=== PATIENT | female | born 1940 | race Caucasian/White ===

== ENCOUNTER 2016-11-05 07:53 | Day surgery (SDC) | payer MEDICARE, OTHER ==
[~2016-11-05 07:53] MED LIST: Lactated Ringers 1,000 ML IV SCH
[2016-11-05] MEDS ORDERED: Acetaminophen 1,000 MG in Premix Bag 1 BAG IV ONE (09:23)
[2016-11-05] MEDS ORDERED: Bupivacaine 0.25%/EPINEPHrine 1:200,000 30 ML SDV ONE (09:51)
[2016-11-05] MEDS ORDERED: Propofol 200 MG/20 ML SDV ONE ×2 (10:08→10:47)
[2016-11-05] MEDS ORDERED: fentaNYL 100 MCG/2 ML SDV ONE (10:08)
[2016-11-05] MEDS ORDERED: Bupivacaine 0.25%/EPINEPHrine 1:200,000 30 ML SDV INFILT ONE (10:37)
[2016-11-05] MEDS ORDERED: ceFAZolin 1 GM Vial ONE (10:44)
[2016-11-05] MEDS ORDERED: Ondansetron 4 MG/2 ML SDV IVPUSH PRN (11:47)
[2016-11-05 12:13] VITALS: BP 163/64
--- NOTE | 2016-11-05 18:14 | OR ---
PREOPERATIVE DIAGNOSIS: Large chronic sebaceous cyst, upper mid back. PREOPERATIVE DIAGNOSIS: Large chronic sebaceous cyst, upper mid back. PROCEDURE PROPOSED: Excision of the large chronic sebaceous cyst, upper midback 5 x 4 cm. PROCEDURE DONE: Excision of the large chronic sebaceous cyst, upper midback 5 x 4 cm. INDICATION: This is a 76-year-old female, who has been dealing with a chronic recurring sebaceous cyst in her upper mid back. She has had this lanced on a couple of occasions and this has spontaneously opened up on couple of occasions. She has been on numerous antibiotics, it never seems to fully heal, and it was therefore felt that it should be excised. TECHNIQUE: The patient was brought to the operative suite, placed in the left lateral decubitus position. She was sedated with propofol per [employer]. The upper midline back area where the lesion was, was sterilely prepped and draped. I then marked the skin to elliptically excise the involved region transversely. I then locally anesthetized the area with 0.25% Marcaine with epinephrine, using approximately 25 mL in total. I then made the skin incision superiorly and inferiorly and with cautery, I dissected out the sebaceous cyst. It did appear to tunnel superiorly, quite a distance; I was able to get up around the cyst wall and then went around posteriorly into normal subcutaneous tissue and removed the block of tissue and mass that measured 5 x 4 cm and submitted that for pathologic examination. Hemostasis was then obtained and assured with cautery and the area was then closed in layered fashion with 3-0 Vicryl ion the subcutaneous tissue followed by subcuticular stitch of 4-0 Vicryl in the skin level with the layered incision closure measuring 6 cm. A pressure dressing was applied. There was minimal blood loss. She was taken back to day surgery in good condition. SCM: 11/05/2016 11:06:47 MODL: 11/05/2016 12:27:52 /[id number]
== END 2016-11-05 13:13 | disposition home or self-care (01) ==
LOC: VM.SDS 07:53
PROVIDERS: ATTEND Surgery
DX: L72.3 Sebaceous cyst (principal); L08.89 Other specified local infections of the skin and subcutaneous tissue; J45.30 Mild persistent asthma, uncomplicated; I13.0 Hypertensive heart and chronic kidney disease with heart failure and stage 1 through stage 4 chronic kidney disease, or unspecified chronic kidney disease; N18.2 Chronic kidney disease, stage 2 (mild); I50.32 Chronic diastolic (congestive) heart failure; Z99.81 Dependence on supplemental oxygen; F41.9 Anxiety disorder, unspecified; Z79.82 Long term (current) use of aspirin; Z79.899 Other long term (current) drug therapy; E55.9 Vitamin D deficiency, unspecified; Z98.890 Other specified postprocedural states; Z98.51 Tubal ligation status
CPT/HCPCS: 00300; 11406; 12032; 88304; J0690; J2704; J3010; J7120; A9270-GY

== ENCOUNTER 2018-12-30 18:31 | Inpatient (IN) | payer MEDICARE, OTHER ==
[2018-12-30 19:22] LABS: CHLORIDE,CL 106 mmol/L (54-184); SODIUM,NA 148 mmol/L (69-191)
[2018-12-30 19:23] LABS: ANION GAP 18.9 mmol/L (10-20)
--- NOTE | 2018-12-30 19:36 | EDM.PDOC ---
ED HPI GENERAL MEDICAL PROBLEM - General Chief Complaint: General Stated Complaint: FALL AND WEAK Time Seen by Provider: 12/30/18 18:40 Source of Information: Reports: Patient History Limitations: Reports: Other (confused ) - History of Present Illness INITIAL COMMENTS - FREE TEXT/NARRATIVE: PT with fall from standing position yesterday states she does remember last night or this morning. Location: Reports: Generalized Left Leg Pain Score (Numeric/FACES): 6 - Related Data Allergies Allergy/AdvReac Type Severity Reaction Status Date / Time No Known Allergies Allergy Verified 12/30/18 19:48 Home Meds: Home Meds Albuterol Sulfate [Albuterol Sulfate HFA] 2 puff INH Q4HR PRN 02/01/14 [History] Aspirin [Halfprin] 1 tab PO DAILY 02/01/14 [History] Fluticasone Propionate [Flonase] 2 spray NASBOTH BID 02/01/14 [History] Fluticasone/Salmeterol [Advair 250-50] 1 dose INH BID 02/01/14 [History] Cholecalciferol (Vitamin D3) [Vitamin D3] 1,000 units PO DAILY tablet 08/11/14 [Rx] Furosemide [Lasix] 20 mg PO DAILY 11/04/16 [History] Ipratropium [Atrovent HFA] 2 puff PO QID 11/04/16 [History] Ibuprofen 400 mg PO DAILY 11/05/16 [History] Past Medical History HEENT History: Reports: Allergic Rhinitis, Cataract Cardiovascular History: Reports: Heart Failure, Hypertension, Pulmonary Hypertension Respiratory History: Reports: Asthma, Bronchitis, Recurrent, COPD, Other (See Below) Other Respiratory History: on oxygen. nocturnal hypoxemia Gastrointestinal History: Reports: None Genitourinary History: Reports: Chronic Renal Insuffiency, Other (See Below) Other Genitourinary History: CKD II Musculoskeletal History: Reports: None Neurological History: Reports: None Psychiatric History: Reports: Anxiety Endocrine/Metabolic History: Reports: Obesity/BMI 30+, Vitamin D Deficiency Hematologic History: Reports: Other (See Below) Other Hematologic History: HX MRSA Immunologic History: Reports: None Oncologic (Cancer) History: Reports: None Dermatologic History: Reports: Cellulitis, Other (See Below) Other Dermatologic History: upper back abscess - Past Surgical History Head Surgeries/Procedures: Reports: None HEENT Surgical History: Reports: Cataract Surgery, Tonsillectomy, Other (See Below) Other HEENT Surgeries/Procedures: eyelid lesion Cardiovascular Surgical History: Reports: None GI Surgical History: Reports: Hernia Repair/Other, Small Bowel Female Surgical History: Reports: Tubal Ligation Musculoskeletal Surgical History: Reports: None Oncologic Surgical History: Reports: None ED ROS GENERAL - Review of Systems Review Of Systems: See Below Constitutional: Reports: Weakness HEENT: Reports: No Symptoms Respiratory: Reports: No Symptoms Cardiovascular: Reports: No Symptoms Endocrine: Reports: No Symptoms GI/Abdominal: Reports: No Symptoms : Reports: No Symptoms Musculoskeletal: Reports: No Symptoms Skin: Reports: No Symptoms Neurological: Reports: No Symptoms Psychiatric: Reports: Confusion Hematologic/Lymphatic: Reports: No Symptoms Immunologic: Reports: No Symptoms ED EXAM, GENERAL - Physical Exam Exam: See Below Exam Limited By: Other (confused) General Appearance: Alert Eye Exam: Bilateral Eye: Normal Inspection Ears: Normal External Exam Nose: Normal Inspection Throat/Mouth: Normal Inspection Head: Atraumatic, Normocephalic Neck: Normal Inspection Respiratory/Chest: No Respiratory Distress, Lungs Clear, Normal Breath Sounds Cardiovascular: Normal Peripheral Pulses GI/Abdominal: Normal Bowel Sounds Back Exam: Normal Inspection Extremities: Normal Inspection Neurological: Alert Psychiatric: Normal Affect, Normal Mood Skin Exam: Warm, Dry, Intact Course - Vital Signs Last Recorded V/S: Last Vital Signs Temp 37.2 C 12/30/18 18:31 Pulse 87 12/30/18 18:31 Resp 20 12/30/18 18:31 BP 116/65 12/30/18 18:31 Pulse Ox 95 12/30/18 18:31 - Orders/Labs/Meds Orders: Active Orders 24 hr Category Date Time Status Supplemental O2 [Oxygen Therapy, ED] [RC] ASDIRECTED Care 12/30/18 20:08 Active Chest 1V Frontal [CR] Stat Exams 12/30/18 20:53 Ordered Pelvis 1V or 2V [CR] Stat Exams 12/30/18 20:34 Ordered CULTURE BLOOD [BC] Stat Lab 12/30/18 20:33 Ordered CULTURE BLOOD [BC] Stat Lab 12/30/18 20:33 Ordered CULTURE URINE [RM] Stat Lab 12/30/18 20:15 Received ESR [SEDIMENTATION RATE AUTO] [HEME] Stat Lab 12/30/18 19:03 Received Blood Culture x2 Reflex Set [OM.PC] Stat Oth 12/30/18 20:33 Ordered Labs: Laboratory Tests 12/30/18 12/30/18 12/30/18 Range/Units 19:03 19:03 19:03 WBC 23.3 H* (4.0-10.0) x10^3/uL RBC 5.49 (4.00-5.50) x10^6/uL Hgb 15.9 D (12.0-16.0) g/dL Hct 49.1 H (33.0-47.0) % MCV 89.4 (78.0-93.0) fL MCH 29.0 (26.0-32.0) pg MCHC 32.4 (32.0-36.0) g/dL RDW Coeff of Yanna 13.4 (10.0-15.0) % Plt Count 360 D (130-400) x10^3/uL Add Manual Diff Yes Neutrophils % (Manual) 88 H (50-80) % Band Neutrophils % 3 (0-6) % Lymphocytes % (Manual) 4 L (25-50) % Monocytes % (Manual) 5 (2-11) % Platelet Estimate Adequate Sodium 148 H (69-191) mmol/L Potassium 4.9 (1.5-9.9) mmol/L Chloride 106 (54-184) mmol/L Carbon Dioxide 28 (21-32) mmol/L Anion Gap 18.9 (10-20) mmol/L BUN 44 H (7-18) mg/dL Creatinine 2.7 H D (0.55-1.02) mg/dL Est Cr Clr Drug Dosing TNP Estimated GFR (MDRD) 17 Glucose 128 H (74-106) mg/dL Lactic Acid (0.4-2.0) mmol/L Calcium 9.9 (8.5-10.1) mg/dL Creatine Kinase (26-192) U/L C-Reactive Protein 7.3 H (<=0.9) mg/dL Urine Color (YELLOW) Urine Appearance (CLEAR) Urine pH (5.0-8.0) Ur Specific [place] Urine Protein (NEGATIVE) mg/dL Urine Glucose (UA) (NEGATIVE) mg/dL Urine Ketones (NEGATIVE) mg/dL Urine Occult Blood (NEGATIVE) Urine Nitrite (NEGATIVE) Urine Bilirubin (NEGATIVE) Urine Urobilinogen (0.2) EU/dL Ur Leukocyte Esterase (NEGATIVE) Urine RBC (NOT SEEN) /HPF Urine WBC (NOT SEEN) /HPF Ur Squamous Epith Cells (NEGATIVE) /HPF Amorphous Sediment Urine Bacteria (NEGATIVE) /HPF Hyaline Casts (NEGATIVE) /HPF Urine Mucus (NEGATIVE) /LPF 12/30/18 12/30/18 Range/Units 19:03 20:15 WBC (4.0-10.0) x10^3/uL RBC (4.00-5.50) x10^6/uL Hgb (12.0-16.0) g/dL Hct (33.0-47.0) % MCV (78.0-93.0) fL MCH (26.0-32.0) pg MCHC (32.0-36.0) g/dL RDW Coeff of Yanna (10.0-15.0) % Plt Count (130-400) x10^3/uL Add Manual Diff Neutrophils % (Manual) (50-80) % Band Neutrophils % (0-6) % Lymphocytes % (Manual) (25-50) % Monocytes % (Manual) (2-11) % Platelet Estimate Sodium (69-191) mmol/L Potassium (1.5-9.9) mmol/L Chloride (54-184) mmol/L Carbon Dioxide (21-32) mmol/L Anion Gap (10-20) mmol/L BUN (7-18) mg/dL Creatinine (0.55-1.02) mg/dL Est Cr Clr Drug Dosing Estimated GFR (MDRD) Glucose (74-106) mg/dL Lactic Acid 2.5 H* (0.4-2.0) mmol/L Calcium (8.5-10.1) mg/dL Creatine Kinase (26-192) U/L C-Reactive Protein (<=0.9) mg/dL Urine Color Dark yellow H (YELLOW) Urine Appearance Slightly cloudy H (CLEAR) Urine pH 5.0 (5.0-8.0) Ur Specific [place] 1.025 Urine Protein 30 H (NEGATIVE) mg/dL Urine Glucose (UA) Negative (NEGATIVE) mg/dL Urine Ketones 15 H (NEGATIVE) mg/dL Urine Occult Blood Moderate H (NEGATIVE) Urine Nitrite Positive H (NEGATIVE) Urine Bilirubin Large H (NEGATIVE) Urine Urobilinogen 1.0 (0.2) EU/dL Ur Leukocyte Esterase Negative (NEGATIVE) Urine RBC 0-5 (NOT SEEN) /HPF Urine WBC 0-5 (NOT SEEN) /HPF Ur Squamous Epith Cells Moderate H (NEGATIVE) /HPF Amorphous Sediment Moderate Urine Bacteria Moderate H (NEGATIVE) /HPF Hyaline Casts Moderate H (NEGATIVE) /HPF Urine Mucus Not seen (NEGATIVE) /LPF Departure - Departure Time of Disposition: 21:18 (Discussed with Dr. Gregory will admit acute ) Disposition: Admitted As Inpatient 68 Condition: Good Clinical Impression: UTI (urinary tract infection) - Discharge Information - My Orders Last 24 Hours: My Active Orders 12/30/18 19:03 ESR [SEDIMENTATION RATE AUTO] [HEME] Stat 12/30/18 20:08 Supplemental O2 [Oxygen Therapy, ED] [RC] ASDIRECTED 12/30/18 20:15 CULTURE URINE [RM] Stat 12/30/18 20:33 CULTURE BLOOD [BC] Stat CULTURE BLOOD [BC] Stat Blood Culture x2 Reflex Set [OM.PC] Stat 12/30/18 20:34 Pelvis 1V or 2V [CR] Stat 12/30/18 20:53 Chest 1V Frontal [CR] Stat - Assessment/Plan Last 24 Hours: My Active Orders 12/30/18 19:03 ESR [SEDIMENTATION RATE AUTO] [HEME] Stat 12/30/18 20:08 Supplemental O2 [Oxygen Therapy, ED] [RC] ASDIRECTED 12/30/18 20:15 CULTURE URINE [RM] Stat 12/30/18 20:33 CULTURE BLOOD [BC] Stat CULTURE BLOOD [BC] Stat Blood Culture x2 Reflex Set [OM.PC] Stat 12/30/18 20:34 Pelvis 1V or 2V [CR] Stat 12/30/18 20:53 Chest 1V Frontal [CR] Stat
--- NOTE | 2018-12-30 20:06 | CT ---
[id number] CT/CT Head WO IV EXAM: CT Head WO IV CLINICAL DATA: FALL, HIT HEAD YESTERDAY, CONFUSION COMPARISON STUDY: None FINDINGS: No intracranial hemorrhage, extra-axial fluid collection, mass, or acute ischemia. Moderate changes of chronic small vessel disease throughout the brain. Calvarium intact. Paranasal sinuses and mastoid air cells are clear. IMPRESSION: No acute intracranial findings. Matthew Germain MD 12/30/182004 Thank you for allowing us to participate in the care of your patient.
[2018-12-30] MEDS: Sodium Chloride 0.9% 1,000 ML IV SCH (21:15)
[2018-12-30] MEDS ORDERED: HYDROmorphone 1 MG/ML Syringe IVPUSH PRN (21:49)
[2018-12-30] MEDS: Heparin Sodium 5,000 Units/ML Vial SUBCUT SCH (22:21)
[2018-12-30] MEDS: cefTRIAXone 1 GM Vial IVPUSH SCH (22:21)
[2018-12-30] MEDS ORDERED: Albuterol HFA 18 Gm Inhaler INH PRN (22:58)
--- NOTE | 2018-12-31 04:23 | HP ---
CHIEF COMPLAINT: Fall with extreme weakness. HISTORY OF PRESENT ILLNESS: The patient is a 78-year-old female who lives home alone. She was brought in by ambulance. She had fallen yesterday at home. She cannot remember exactly what happened. She laid on the floor for about 4 hours and then was able to crawl and get a neighbor to help her get a walker. She does not remember hitting her head, but she just does not remember the fall. She does have a fair amount of anxiety disorder. She does not have Lifeline. She does have oxygen, which I am not certain if she had used last night or not. The patient otherwise has been in fairly stable health. She does have known asthma, CHF, chronic kidney disease stage 2 to 3, and chronic anxiety disorder. To note, the patient's son about a month ago of alcoholism. The patient otherwise offers no concerns. To note, the patient had not been on FORREST inhibitor or beta-abhi because of renal function. It is difficult to tell if she has taken any of her pills in the last 24 hours. MEDICATIONS: Her medications that she is currently on are carvedilol 3.125 mg 1 pill twice a day, Flonase 2 sprays twice a day, albuterol inhaler 2 puffs every 4 hours as needed, furosemide 20 mg 1 pill daily, Advair 250/50 one puff twice a day, aspirin 81 mg 1 pill a day, and vitamin D 1000 units 1 pill a day. ALLERGIES: None known. PAST MEDICAL HISTORY: She has a history of chronic diastolic heart failure. She had her last echocardiogram in 2017, which showed her ejection fraction at 60%. She has grade 1 diastolic dysfunction. No significant aortic regurgitation. No significant mitral regurgitation. Mild tricuspid regurgitation. Pulmonary artery pressure was elevated at 57, so moderate-to- severe pulmonary hypertension. The patient has hypertension, chronic anxiety disorder, COPD with asthma and nocturnal hypoxemia. She has had secondhand smoke exposure. Morbid obesity. She had MRSA in the past. She has had fibromyalgia. She had cellulitis of her upper back with some sebaceous cyst in 2017 via the MRSA that was on 08/11/2014. She has had a pulmonary nodule on the right. Vitamin D deficiency. PAST SURGICAL HISTORY: She has had cataract surgery. She has had intestinal resection in 2014 for small bowel obstruction. She has had tonsillectomy and tubal ligation. FAMILY MEDICAL HISTORY: Maternal grandmother has had diabetes. Mother has had cataracts. SOCIAL HISTORY: She is . She has had 2 children, 1 has since . She has never smoked. She does not consume alcohol. She lives in [place]. Homemaker. REVIEW OF SYSTEMS: She has had chronic left hip pain. She has not had any fever or chills. She does have some bruises on her knees and her elbows from her fall. She can get short of breath with activity. She does not walk around much. OBJECTIVE: Vital Signs: Show that her temperature is 37.2, pulse 87, blood pressure is 116/65, respiratory rate 20, and saturations are 95% on 2 L. Her weight was 104.3 kg. Skin: She normally has chronic oily greasy skin. She does have some skin abrasions on her elbows. She does have ecchymosis on her knees bilaterally about 4 cm in size with mild erythema on her kneecaps. Her back skin appears normal as well as her buttock. HEENT: Her mucous membranes are extremely dry. Conjunctivae are slightly injected. Heart: Regular rate and rhythm without murmurs or bruits. Lungs: Diminished breath sounds. Chest Wall: Nontender to palpation. Abdomen: Obese , soft, nontender. No hepatosplenomegaly. Pelvis: Itself is nontender, but she does have soreness if she rolls onto her left side. Neurologic: She is alert, oriented x3. Psych: She appears anxious and forgetful. LABORATORY DATA: Her lab work came back showing her white blood cell count elevated at 23.3, hemoglobin 15.9, platelets 360 with 88 segs and 3 bands. Sodium 148; potassium 4.9; creatinine 2.7, her normal creatinine runs around 1.3; BUN is 44; GFR 17; glucose 128. Lactic acid elevated at 2.5. CRP is 7.3. CK is elevated at 8580. Urinalysis with mini cath was dark yellow, slightly cloudy, specific gravity 1.025, protein 30, 15 ketones, moderate blood, positive nitrites, large bilirubin, moderate epi's, moderate bacteria, moderate hyaline casts, 0 to 5 red blood cells, 0 to 5 white blood cells. Chest x-ray was obtained, which shows no infiltrates or acute injuries. Hip x- ray showed old degenerative changes, but no acute fracture. She had a head CT done, which showed no acute injuries. IMPRESSION: 1. Acute weakness, multifactorial. 2. Acute kidney injury. 3. Rhabdomyolysis. 4. Elevated lactic acid. 5. Urinary tract infection. 6. Congestive heart failure. 7. Chronic anxiety disorder. 8. Chronic obstructive pulmonary disease. 9. Multiple skin abrasions. PLAN: The patient will be admitted to Acute Care. We will give IV hydration. She was given Rocephin for concern for bladder infection. Blood cultures were obtained that are pending. She has had a history of MRSA, so she will need to be in isolation. She will need a supplemental oxygen at bedtime. The patient's code level status was discussed with her, and she is do not resuscitate, do not intubate. We will offer Tylenol as well as Dilaudid for pain control. We will offer ice packs for her knee. We will get physical therapy and occupational therapy. We will place her on heparin for DVT prophylaxis because of her acute kidney injury. I do anticipate the patient to be able to return home; however, she may need a swing bed stay to help get her strong enough to be at home, as well she will need to get a [employer] set up for her. To note, Dr. Erika Suggs will follow up for me tomorrow in my absence as well as the weekend. GM12/30/2018 22:07:45 MODL: 12/31/2018 04:14:22 /[id number]
[2018-12-31] MEDS ORDERED: Fluticasone-Salmeterol 113-14 MCG Powder Inhalant INH SCH (07:00)
[2018-12-31] MEDS ORDERED: Carvedilol 3.125 MG Tab PO SCH (07:00)
[2018-12-31 07:32] LABS: ANION GAP 15.3 mmol/L (10-20)
--- NOTE | 2018-12-31 07:47 | CR ---
[id number] RAD/RAD Chest PA or AP 1V EXAM: SINGLE VIEW CHEST. INDICATION: HISTORY OF CARDIAC DISEASE COMPARISON: NO PREVIOUS SIMILAR EXAM IS AVAILABLE FINDINGS: There is mild discoid atelectasis in the lingula The cardiac silhouette is enlarged The aorta is tortuous The mediastinum is prominent IMPRESSION: NO PNEUMONIA OR EDEMA Francis Arroyo MD 12/31/18 0746 Thank you for allowing us to participate in the care of your patient.
--- NOTE | 2018-12-31 07:48 | CR ---
[id number] RAD/RAD Pelvis 1-2V Exam: RAD Pelvis 1-2V Clinical Data: BILATERAL HIP PAIN COMPARISON: NO PREVIOUS SIMILAR EXAM IS AVAILABLE FINDINGS: There are significant degenerative changes of both hips There are degenerative changes of the lumbar spine There is no fracture or dislocation IMPRESSION: DEGENERATIVE CHANGES OF BOTH HIPS Francis Arroyo MD 12/31/18 0747 Thank you for allowing us to participate in the care of your patient.
[2018-12-31] MEDS ORDERED: Fluticasone Propionate Nasal Spray 16 GM Bottle NASBOTH SCH (08:00)
[2018-12-31] MEDS ORDERED: SALMETEROL INH SCH (08:00)
[2018-12-31] MEDS ORDERED: FLUTICASONE INH SCH (08:00)
[2018-12-31] MEDS: Fluticasone-Salmeterol 113-14 MCG Powder Inhalant INH SCH ×2 (08:03→22:17)
[2018-12-31] MEDS: Aspirin 81 MG Tab.EC PO SCH (08:03)
[2018-12-31] MEDS: Carvedilol 3.125 MG Tab PO SCH ×2 (08:04→17:01)
[2018-12-31] MEDS ORDERED: Albuterol 0.083% 2.5 MG/3 ML Neb Soln NEB PRN (08:33)
--- NOTE | 2018-12-31 08:46 | PCM.PN ---
- General Info Date of Service: 12/31/18 Subjective Update: 78 yo female hospital day #2 admitted with YESICA secondary to rhabdomyolysis with possible sepsis contributing as well. Patient states she is doing better this morning. She is sore from working so hard to try to get up off the floor but does not have any focal pain. She also feels weak from the events of the past couple of days as well. She admits that she has not been eating and drinking as well as usual due to grief about her son 's 3 weeks ago. She denies any shortness of breath. She also denies any urinary symptoms and has not had any dysuria, frequency, or urgency. She has not had any fever. No recent cough or URI symptoms. No skin areas of concern by the patient nor on the nurse's full skin assessment at admit. She denies any abdominal pain, nausea, or vomiting. - Review of Systems General: Reports: No Symptoms HEENT: Reports: No Symptoms Pulmonary: Reports: No Symptoms Cardiovascular: Reports: No Symptoms Gastrointestinal: Reports: No Symptoms Genitourinary: Reports: No Symptoms Musculoskeletal: Reports: Arm Pain, Leg Pain Skin: Reports: No Symptoms Neurological: Reports: No Symptoms - Patient Data Vitals - Most Recent: Last Vital Signs Temp 37.4 C 12/31/18 05:07 Pulse 78 12/31/18 08:04 Resp 18 12/31/18 05:07 BP 133/78 12/31/18 08:04 Pulse Ox 95 12/31/18 07:25 Weight - Most Recent: 97.522 kg I&O - Last 24 Hours: Intake & Output 12/30/18 12/31/18 12/31/18 22:59 06:59 14:59 Intake Total 1440 Balance 1440 Lab Results Last 24 Hours: Laboratory Results - last 24 hr 12/30/18 12/30/18 12/30/18 Range/Units 19:03 19:03 19:03 WBC 23.3 H* (4.0-10.0) x10^3/uL RBC 5.49 (4.00-5.50) x10^6/uL Hgb 15.9 D (12.0-16.0) g/dL Hct 49.1 H (33.0-47.0) % MCV 89.4 (78.0-93.0) fL MCH 29.0 (26.0-32.0) pg MCHC 32.4 (32.0-36.0) g/dL RDW Coeff of Yanna 13.4 (10.0-15.0) % Plt Count 360 D (130-400) x10^3/uL Add Manual Diff Yes Neutrophils % (Manual) 88 H (50-80) % Band Neutrophils % 3 (0-6) % Lymphocytes % (Manual) 4 L (25-50) % Monocytes % (Manual) 5 (2-11) % Platelet Estimate Adequate ESR (0-21) mm/hr Sodium 148 H (69-191) mmol/L Potassium 4.9 (1.5-9.9) mmol/L Chloride 106 (54-184) mmol/L Carbon Dioxide 28 (21-32) mmol/L Anion Gap 18.9 (10-20) mmol/L BUN 44 H (7-18) mg/dL Creatinine 2.7 H D (0.55-1.02) mg/dL Est Cr Clr Drug Dosing TNP Estimated GFR (MDRD) 17 Glucose 128 H (74-106) mg/dL Lactic Acid (0.4-2.0) mmol/L Calcium 9.9 (8.5-10.1) mg/dL Corrected Calcium (8.5-10.1) mg/dL Magnesium (1.8-2.4) mg/dL Total Bilirubin (0.2-1.0) mg/dL AST (15-37) U/L ALT (14-59) U/L Alkaline Phosphatase (46-116) U/L Creatine Kinase 8500 H* (26-192) U/L C-Reactive Protein 7.3 H (<=0.9) mg/dL NT-Pro-B Natriuret Pep (<=450) pg/mL Total Protein (6.4-8.2) g/dL Albumin (3.4-5.0) g/dL Globulin Albumin/Globulin Ratio Urine Color (YELLOW) Urine Appearance (CLEAR) Urine pH (5.0-8.0) Ur Specific Nunda Urine Protein (NEGATIVE) mg/dL Urine Glucose (UA) (NEGATIVE) mg/dL Urine Ketones (NEGATIVE) mg/dL Urine Occult Blood (NEGATIVE) Urine Nitrite (NEGATIVE) Urine Bilirubin (NEGATIVE) Urine Urobilinogen (0.2) EU/dL Ur Leukocyte Esterase (NEGATIVE) Urine RBC (NOT SEEN) /HPF Urine WBC (NOT SEEN) /HPF Ur Squamous Epith Cells (NEGATIVE) /HPF Amorphous Sediment Urine Bacteria (NEGATIVE) /HPF Hyaline Casts (NEGATIVE) /HPF Urine Mucus (NEGATIVE) /LPF 12/30/18 12/30/18 12/30/18 Range/Units 19:03 19:03 20:15 WBC (4.0-10.0) x10^3/uL RBC (4.00-5.50) x10^6/uL Hgb (12.0-16.0) g/dL Hct (33.0-47.0) % MCV (78.0-93.0) fL MCH (26.0-32.0) pg MCHC (32.0-36.0) g/dL RDW Coeff of Yanna (10.0-15.0) % Plt Count (130-400) x10^3/uL Add Manual Diff Neutrophils % (Manual) (50-80) % Band Neutrophils % (0-6) % Lymphocytes % (Manual) (25-50) % Monocytes % (Manual) (2-11) % Platelet Estimate ESR 17 (0-21) mm/hr Sodium (69-191) mmol/L Potassium (1.5-9.9) mmol/L Chloride (54-184) mmol/L Carbon Dioxide (21-32) mmol/L Anion Gap (10-20) mmol/L BUN (7-18) mg/dL Creatinine (0.55-1.02) mg/dL Est Cr Clr Drug Dosing Estimated GFR (MDRD) Glucose (74-106) mg/dL Lactic Acid 2.5 H* (0.4-2.0) mmol/L Calcium (8.5-10.1) mg/dL Corrected Calcium (8.5-10.1) mg/dL Magnesium (1.8-2.4) mg/dL Total Bilirubin (0.2-1.0) mg/dL AST (15-37) U/L ALT (14-59) U/L Alkaline Phosphatase (46-116) U/L Creatine Kinase (26-192) U/L C-Reactive Protein (<=0.9) mg/dL NT-Pro-B Natriuret Pep (<=450) pg/mL Total Protein (6.4-8.2) g/dL Albumin (3.4-5.0) g/dL Globulin Albumin/Globulin Ratio Urine Color Dark yellow H (YELLOW) Urine Appearance Slightly cloudy H (CLEAR) Urine pH 5.0 (5.0-8.0) Ur Specific Nunda 1.025 Urine Protein 30 H (NEGATIVE) mg/dL Urine Glucose (UA) Negative (NEGATIVE) mg/dL Urine Ketones 15 H (NEGATIVE) mg/dL Urine Occult Blood Moderate H (NEGATIVE) Urine Nitrite Positive H (NEGATIVE) Urine Bilirubin Large H (NEGATIVE) Urine Urobilinogen 1.0 (0.2) EU/dL Ur Leukocyte Esterase Negative (NEGATIVE) Urine RBC 0-5 (NOT SEEN) /HPF Urine WBC 0-5 (NOT SEEN) /HPF Ur Squamous Epith Cells Moderate H (NEGATIVE) /HPF Amorphous Sediment Moderate Urine Bacteria Moderate H (NEGATIVE) /HPF Hyaline Casts Moderate H (NEGATIVE) /HPF Urine Mucus Not seen (NEGATIVE) /LPF 12/30/18 12/31/18 12/31/18 Range/Units 23:06 06:38 06:38 WBC 19.1 H (4.0-10.0) x10^3/uL RBC 4.65 (4.00-5.50) x10^6/uL Hgb 13.4 D (12.0-16.0) g/dL Hct 42.4 (33.0-47.0) % MCV 91.2 (78.0-93.0) fL MCH 28.8 (26.0-32.0) pg MCHC 31.6 L (32.0-36.0) g/dL RDW Coeff of Yanna 13.3 (10.0-15.0) % Plt Count 280 D (130-400) x10^3/uL Add Manual Diff Yes Neutrophils % (Manual) 93 H (50-80) % Band Neutrophils % (0-6) % Lymphocytes % (Manual) 2 L (25-50) % Monocytes % (Manual) 5 (2-11) % Platelet Estimate Adequate ESR (0-21) mm/hr Sodium 147 H (69-191) mmol/L Potassium 4.3 (1.5-9.9) mmol/L Chloride 108 H (54-184) mmol/L Carbon Dioxide 28 (21-32) mmol/L Anion Gap 15.3 (10-20) mmol/L BUN 47 H (7-18) mg/dL Creatinine 2.2 H (0.55-1.02) mg/dL Est Cr Clr Drug Dosing 17.21 Estimated GFR (MDRD) 22 Glucose 113 H (74-106) mg/dL Lactic Acid 1.4 (0.4-2.0) mmol/L Calcium 8.4 L D (8.5-10.1) mg/dL Corrected Calcium 9.28 (8.5-10.1) mg/dL Magnesium 2.3 (1.8-2.4) mg/dL Total Bilirubin 0.8 (0.2-1.0) mg/dL AST 209 H (15-37) U/L ALT 81 H (14-59) U/L Alkaline Phosphatase 63 (46-116) U/L Creatine Kinase 2711 H* (26-192) U/L C-Reactive Protein (<=0.9) mg/dL NT-Pro-B Natriuret Pep 1713 H (<=450) pg/mL Total Protein 6.5 (6.4-8.2) g/dL Albumin 2.9 L (3.4-5.0) g/dL Globulin 3.6 Albumin/Globulin Ratio 0.81 Urine Color (YELLOW) Urine Appearance (CLEAR) Urine pH (5.0-8.0) Ur Specific Nunda Urine Protein (NEGATIVE) mg/dL Urine Glucose (UA) (NEGATIVE) mg/dL Urine Ketones (NEGATIVE) mg/dL Urine Occult Blood (NEGATIVE) Urine Nitrite (NEGATIVE) Urine Bilirubin (NEGATIVE) Urine Urobilinogen (0.2) EU/dL Ur Leukocyte Esterase (NEGATIVE) Urine RBC (NOT SEEN) /HPF Urine WBC (NOT SEEN) /HPF Ur Squamous Epith Cells (NEGATIVE) /HPF Amorphous Sediment Urine Bacteria (NEGATIVE) /HPF Hyaline Casts (NEGATIVE) /HPF Urine Mucus (NEGATIVE) /LPF 12/31/18 Range/Units 06:38 WBC (4.0-10.0) x10^3/uL RBC (4.00-5.50) x10^6/uL Hgb (12.0-16.0) g/dL Hct (33.0-47.0) % MCV (78.0-93.0) fL MCH (26.0-32.0) pg MCHC (32.0-36.0) g/dL RDW Coeff of Yanna (10.0-15.0) % Plt Count (130-400) x10^3/uL Add Manual Diff Neutrophils % (Manual) (50-80) % Band Neutrophils % (0-6) % Lymphocytes % (Manual) (25-50) % Monocytes % (Manual) (2-11) % Platelet Estimate ESR (0-21) mm/hr Sodium (69-191) mmol/L Potassium (1.5-9.9) mmol/L Chloride (54-184) mmol/L Carbon Dioxide (21-32) mmol/L Anion Gap (10-20) mmol/L BUN (7-18) mg/dL Creatinine (0.55-1.02) mg/dL Est Cr Clr Drug Dosing Estimated GFR (MDRD) Glucose (74-106) mg/dL Lactic Acid 1.4 (0.4-2.0) mmol/L Calcium (8.5-10.1) mg/dL Corrected Calcium (8.5-10.1) mg/dL Magnesium (1.8-2.4) mg/dL Total Bilirubin (0.2-1.0) mg/dL AST (15-37) U/L ALT (14-59) U/L Alkaline Phosphatase (46-116) U/L Creatine Kinase (26-192) U/L C-Reactive Protein (<=0.9) mg/dL NT-Pro-B Natriuret Pep (<=450) pg/mL Total Protein (6.4-8.2) g/dL Albumin (3.4-5.0) g/dL Globulin Albumin/Globulin Ratio Urine Color (YELLOW) Urine Appearance (CLEAR) Urine pH (5.0-8.0) Ur Specific Nunda Urine Protein (NEGATIVE) mg/dL Urine Glucose (UA) (NEGATIVE) mg/dL Urine Ketones (NEGATIVE) mg/dL Urine Occult Blood (NEGATIVE) Urine Nitrite (NEGATIVE) Urine Bilirubin (NEGATIVE) Urine Urobilinogen (0.2) EU/dL Ur Leukocyte Esterase (NEGATIVE) Urine RBC (NOT SEEN) /HPF Urine WBC (NOT SEEN) /HPF Ur Squamous Epith Cells (NEGATIVE) /HPF Amorphous Sediment Urine Bacteria (NEGATIVE) /HPF Hyaline Casts (NEGATIVE) /HPF Urine Mucus (NEGATIVE) /LPF Alex Results Last 24 Hours: Microbiology 12/30/18 21:45 Anaerobic Blood Culture - Final Blood - Venous - Lab Draw 12/30/18 21:34 Anaerobic Blood Culture - Final Blood - Venous Med Orders - Current: Current Medications Acetaminophen (Tylenol) 650 mg PO Q4H PRN PRN Reason: Pain (Mild 1-3)/fever Albuterol (Ventolin Hfa) 0 gm INH Q4H PRN PRN Reason: Shortness of Breath Albuterol (Proventil Neb Soln) 2.5 mg NEB Q4HRRT PRN PRN Reason: Shortness of Breath Aspirin (Halfprin) 81 mg PO DAILY [facility] Last Admin: 12/31/18 08:03 Dose: 81 mg Carvedilol (Coreg) 3.125 mg PO BID@0800,1700 [facility] Last Admin: 12/31/18 08:04 Dose: 3.125 mg Ceftriaxone Sodium (Rocephin) 1 gm IVPUSH Q24H [facility] Last Admin: 12/30/18 22:21 Dose: 1 gm Heparin Sodium (Porcine) (Heparin Sodium) 5,000 units SUBCUT Q12H [facility] Last Admin: 12/30/18 22:21 Dose: 5,000 units Sodium Chloride (Normal Saline) 1,000 mls @ 100 mls/hr IV ASDIRECTED [facility] Last Admin: 12/30/18 21:15 Dose: 100 mls/hr Influenza Virus Vaccine (Fluzone High-Dose 2018- Syringe) 180 mcg IM .ONCE ONE Stop: 12/31/18 09:01 Fluticasone/Salmeterol (Fluticasone-Salmeterol 113-14 Mcg Powder Inh) 1 puff INH BID@0800,2000 [facility] Last Admin: 12/31/18 08:03 Dose: 1 puff Discontinued Medications Carvedilol (Coreg) 3.125 mg PO BIDAC [facility] Fluticasone Propionate (Flonase) 0 gm NASBOTH BID [facility] Last Admin: 12/31/18 08:05 Dose: Not Given Hydromorphone HCl (Dilaudid) 0.25 mg IVPUSH Q4H PRN PRN Reason: Pain Last Admin: 12/30/18 22:22 Dose: 0.25 mg Influenza Virus Vaccine (Pharmacy To Dose - Influenza Vaccine) 1 each IM ONETIME ONE Stop: 12/30/18 23:31 - Exam General: Alert, Oriented, Cooperative, No Acute Distress HEENT: Mucous Membr. Moist/[place] Neck: Supple, Trachea Midline, No Thyromegaly. No: Lymphadenopathy Lungs: Clear to Auscultation, Normal Respiratory Effort Cardiovascular: Regular Rate, Regular Rhythm, No Murmurs GI/Abdominal Exam: Normal Bowel Sounds, Soft, Non-Tender, No Organomegaly, No Distention, No Mass Extremities: Non-Tender, No Pedal Edema, Normal Capillary Refill Peripheral Pulses: 2+: Radial (L), Radial (R) Skin: Warm, Dry, Intact Neurological: No New Focal Deficit - Problem List & Annotations (1) YESICA (acute kidney injury) SNOMED Code(s): 68862846, 09813296 Code(s): N17.9 - ACUTE KIDNEY FAILURE, UNSPECIFIED Status: Acute Current Visit: Yes (2) CKD (chronic kidney disease) stage 2, GFR 60-89 ml/min SNOMED Code(s): 750183926 Code(s): N18.2 - CHRONIC KIDNEY DISEASE, STAGE 2 (MILD) Status: Chronic Priority: Medium Current Visit: Yes (3) Rhabdomyolysis SNOMED Code(s): 370079271 Code(s): M62.82 - RHABDOMYOLYSIS Status: Acute Current Visit: Yes Qualifiers: Rhabdomyolysis type: non-traumatic Qualified Code(s): M62.82 - Rhabdomyolysis (4) Leukocytosis SNOMED Code(s): 910766125, 351687650 Code(s): D72.829 - ELEVATED WHITE BLOOD CELL COUNT, UNSPECIFIED Status: Acute Current Visit: Yes Qualifiers: Leukocytosis type: unspecified Qualified Code(s): D72.829 - Elevated white blood cell count, unspecified (5) Generalized weakness SNOMED Code(s): 42736305 Code(s): R53.1 - WEAKNESS Status: Acute Current Visit: Yes (6) Anxiety SNOMED Code(s): 58164565 Code(s): F41.9 - ANXIETY DISORDER, UNSPECIFIED Status: Chronic Priority: Low Current Visit: Yes (7) CHF (congestive heart failure) SNOMED Code(s): 29101425 Code(s): I50.9 - HEART FAILURE, UNSPECIFIED Status: Chronic Priority: Medium Current Visit: Yes (8) COPD (chronic obstructive pulmonary disease) SNOMED Code(s): 21920039 Code(s): J44.9 - CHRONIC OBSTRUCTIVE PULMONARY DISEASE, UNSPECIFIED Status : Chronic Priority: Medium Current Visit: Yes Qualifiers: COPD type: unspecified COPD Qualified Code(s): J44.9 - Chronic obstructive pulmonary disease, unspecified (9) HTN (hypertension), benign SNOMED Code(s): 96458384 Code(s): I10 - ESSENTIAL (PRIMARY) HYPERTENSION Status: Chronic Priority : Low Current Visit: Yes - Problem List Review Problem List Initiated/Reviewed/Updated: Yes - Assessment Assessment:: 78 yo female hospital day #2 with YESICA secondary to rhabdomyolysis after a fall at home from which she could not get up. She is sore today but otherwise feeling fine. Her labs are looking better today. - Plan Plan:: #1 Acute Kidney Injury, secondary to #3 #2 CKD stage II with baseline creatinine of 1.3 #3 Rhabdomyolysis - [employer] down to 2.2 today from 2.7 yesterday. - CK also already trending down. - Patient is tolerating the fluid load without any issues. - Therefore, will continue normal saline @100 cc/hr. - Recheck labs in the am. #4 Leukocytosis - U/A showed nitrites but no pyuria; she also has had no symptoms of a UTI. - Given significant elevation in her WBC, will continue antibiotics (ceftriaxone ) until her urine culture is available. - It is also possible the leukocytosis is from the fall and associated rhabdomyolysis. Therefore, if her urine culture is negative, would stop antibiotics and observe. She has no other s/s of an alternative infectious source. #5 Generalized weakness, multifactorial - Patient will have PT and OT consults today. #6 Anxiety #7 Diastolic CHF #8 COPD #9 Hypertension - Continue home medications. - Patient may benefit from counseling related to her grief. Patient will remain admitted to acute today - anticipate she will be on acute for another 2 nights as we await her urine culture and continue to provide IV antibiotics and fluids until this is available and her labs are consistently trending towards improvement. Recheck labs in the am. Code status is DNR/DNI - discussed with her PCP on admission. She is on heparin for VTE prophylaxis.
[2018-12-31] MEDS: Heparin Sodium 5,000 Units/ML Vial SUBCUT SCH ×2 (09:44→22:19)
[2018-12-31] MEDS: Sodium Chloride 0.9% 1,000 ML IV SCH ×2 (11:09→18:07)
[2018-12-31] MEDS: cefTRIAXone 1 GM Vial IVPUSH SCH (22:15)
[2018-12-31] MEDS: Acetaminophen 325 MG Tab PO PRN (22:20)
[2019-01-01] MEDS: Sodium Chloride 0.9% 1,000 ML IV SCH (04:06)
[2019-01-01] MEDS: Acetaminophen 325 MG Tab PO PRN ×2 (04:07→16:13)
[2019-01-01] MEDS: Aspirin 81 MG Tab.EC PO SCH (08:00)
[2019-01-01] MEDS: Fluticasone-Salmeterol 113-14 MCG Powder Inhalant INH SCH ×2 (08:00→21:55)
[2019-01-01] MEDS: Carvedilol 3.125 MG Tab PO SCH ×2 (08:00→17:11)
[2019-01-01 08:21] LABS: ANION GAP 13.4 mmol/L (10-20)
--- NOTE | 2019-01-01 09:13 | PCM.PN ---
- General Info Date of Service: 01/01/19 Subjective Update: 78 yo female hospital day #3 admitted with YESICA secondary to dehydration and rhabdomyolysis. There was also a question of a UTI but her culture has come back negative. She reports that she is feeling somewhat better today. Although she is still weak, she feels her strength is improving. She has not slept well due to feeling like she cannot relax. She has some mild discomfort in both of her legs but no significant or focal pain. She denies any shortness of breath above her baseline and has had no swelling in her legs. PT did see her yesterday and do feel she would benefit from ongoing therapies. - Review of Systems General: Reports: No Symptoms HEENT: Reports: No Symptoms Pulmonary: Reports: No Symptoms Cardiovascular: Reports: No Symptoms Gastrointestinal: Reports: No Symptoms Genitourinary: Reports: No Symptoms Musculoskeletal: Reports: Leg Pain Skin: Reports: No Symptoms Neurological: Reports: No Symptoms - Patient Data Vitals - Most Recent: Last Vital Signs Temp 35.4 C 01/01/19 06:00 Pulse 63 01/01/19 08:00 Resp 22 H 01/01/19 06:00 BP 118/51 L 01/01/19 08:00 Pulse Ox 96 01/01/19 07:30 Weight - Most Recent: 103.192 kg I&O - Last 24 Hours: Intake & Output 12/31/18 01/01/19 01/01/19 22:59 06:59 14:59 Intake Total 1709 1982 180 Output Total 200 600 Balance 1509 1382 180 Lab Results Last 24 Hours: Laboratory Results - last 24 hr 01/01/19 01/01/19 Range/Units 07:23 07:23 WBC 10.3 H (4.0-10.0) x10^3/uL RBC 4.13 (4.00-5.50) x10^6/uL Hgb 12.0 (12.0-16.0) g/dL Hct 38.4 (33.0-47.0) % MCV 93.0 (78.0-93.0) fL MCH 29.1 (26.0-32.0) pg MCHC 31.3 L (32.0-36.0) g/dL RDW Coeff of Yanna 13.2 (10.0-15.0) % Plt Count 230 (130-400) x10^3/uL Add Manual Diff Yes Neutrophils % (Manual) 79 (50-80) % Lymphocytes % (Manual) 10 L (25-50) % Monocytes % (Manual) 10 (2-11) % Eosinophils % (Manual) 1 (0-4) % Platelet Estimate Adequate Sodium 144 (69-191) mmol/L Potassium 4.4 (1.5-9.9) mmol/L Chloride 108 H (54-184) mmol/L Carbon Dioxide 27 (21-32) mmol/L Anion Gap 13.4 (10-20) mmol/L BUN 36 H (7-18) mg/dL Creatinine 1.4 H (0.55-1.02) mg/dL Est Cr Clr Drug Dosing 27.04 mL/min Estimated GFR (MDRD) 37 Glucose 88 (74-106) mg/dL Calcium 8.2 L (8.5-10.1) mg/dL Creatine Kinase 1388 H* (26-192) U/L C-Reactive Protein 4.1 H (<=0.9) mg/dL Alex Results Last 24 Hours: Microbiology 12/30/18 21:45 Aerobic Blood Culture - Preliminary Blood - Venous - Lab Draw NO GROWTH AFTER 1 DAY Anaerobic Blood Culture - Final 12/30/18 21:34 Aerobic Blood Culture - Preliminary Blood - Venous NO GROWTH AFTER 1 DAY Anaerobic Blood Culture - Final 12/30/18 20:15 Urine Culture - Preliminary Urine, Clean Catch NO GROWTH AFTER 1 DAY Med Orders - Current: Current Medications Acetaminophen (Tylenol) 650 mg PO Q4H PRN PRN Reason: Pain (Mild 1-3)/fever Last Admin: 01/01/19 04:07 Dose: 650 mg Albuterol (Ventolin Hfa) 0 gm INH Q4H PRN PRN Reason: Shortness of Breath Albuterol (Proventil Neb Soln) 2.5 mg NEB Q4HRRT PRN PRN Reason: Shortness of Breath Aspirin (Halfprin) 81 mg PO DAILY [facility] Last Admin: 01/01/19 08:00 Dose: 81 mg Carvedilol (Coreg) 3.125 mg PO BID@0800,1700 [facility] Last Admin: 01/01/19 08:00 Dose: 3.125 mg Heparin Sodium (Porcine) (Heparin Sodium) 5,000 units SUBCUT Q12H [facility] Last Admin: 12/31/18 22:19 Dose: 5,000 units Fluticasone/Salmeterol (Fluticasone-Salmeterol 113-14 Mcg Powder Inh) 1 puff INH BID@0800,2000 [facility] Last Admin: 01/01/19 08:00 Dose: 1 puff Discontinued Medications Carvedilol (Coreg) 3.125 mg PO BIDAC [facility] Ceftriaxone Sodium (Rocephin) 1 gm IVPUSH Q24H [facility] Last Admin: 12/31/18 22:15 Dose: 1 gm Fluticasone Propionate (Flonase) 0 gm NASBOTH BID [facility] Last Admin: 12/31/18 08:05 Dose: Not Given Hydromorphone HCl (Dilaudid) 0.25 mg IVPUSH Q4H PRN PRN Reason: Pain Last Admin: 12/30/18 22:22 Dose: 0.25 mg Sodium Chloride (Normal Saline) 1,000 mls @ 100 mls/hr IV ASDIRECTED [facility] Last Admin: 01/01/19 04:06 Dose: 100 mls/hr Influenza Virus Vaccine (Pharmacy To Dose - Influenza Vaccine) 1 each IM ONETIME ONE Stop: 12/30/18 23:31 Influenza Virus Vaccine (Fluzone High-Dose 2019-20 Syringe) 180 mcg IM .ONCE ONE Stop: 12/31/18 09:01 Last Admin: 12/31/18 09:44 Dose: 180 mcg - Exam General: Alert, Oriented, Cooperative, No Acute Distress HEENT: Mucous Membr. Moist/[place] Neck: Supple, Trachea Midline, No Thyromegaly. No: Lymphadenopathy Lungs: Clear to Auscultation, Normal Respiratory Effort Cardiovascular: Regular Rate, Regular Rhythm, No Murmurs GI/Abdominal Exam: Normal Bowel Sounds, Soft, Non-Tender, No Organomegaly, No Distention, No Mass Extremities: Non-Tender, No Pedal Edema, Normal Capillary Refill Peripheral Pulses: 2+: Radial (L), Radial (R) Skin: Warm, Dry, Intact - Problem List & Annotations (1) YESICA (acute kidney injury) SNOMED Code(s): 43080059, 88172821 Code(s): N17.9 - ACUTE KIDNEY FAILURE, UNSPECIFIED Status: Acute Current Visit: Yes (2) CKD (chronic kidney disease) stage 2, GFR 60-89 ml/min SNOMED Code(s): 266562268 Code(s): N18.2 - CHRONIC KIDNEY DISEASE, STAGE 2 (MILD) Status: Chronic Priority: Medium Current Visit: Yes (3) Rhabdomyolysis SNOMED Code(s): 175569118 Code(s): M62.82 - RHABDOMYOLYSIS Status: Acute Current Visit: Yes Qualifiers: Rhabdomyolysis type: non-traumatic Qualified Code(s): M62.82 - Rhabdomyolysis (4) Leukocytosis SNOMED Code(s): 552782821, 829106424 Code(s): D72.829 - ELEVATED WHITE BLOOD CELL COUNT, UNSPECIFIED Status: Acute Current Visit: Yes Qualifiers: Leukocytosis type: unspecified Qualified Code(s): D72.829 - Elevated white blood cell count, unspecified (5) Generalized weakness SNOMED Code(s): 64452860 Code(s): R53.1 - WEAKNESS Status: Acute Current Visit: Yes (6) Anxiety SNOMED Code(s): 79196983 Code(s): F41.9 - ANXIETY DISORDER, UNSPECIFIED Status: Chronic Priority: Low Current Visit: Yes (7) CHF (congestive heart failure) SNOMED Code(s): 62527347 Code(s): I50.9 - HEART FAILURE, UNSPECIFIED Status: Chronic Priority: Medium Current Visit: Yes (8) COPD (chronic obstructive pulmonary disease) SNOMED Code(s): 66363542 Code(s): J44.9 - CHRONIC OBSTRUCTIVE PULMONARY DISEASE, UNSPECIFIED Status : Chronic Priority: Medium Current Visit: Yes Qualifiers: COPD type: unspecified COPD Qualified Code(s): J44.9 - Chronic obstructive pulmonary disease, unspecified (9) HTN (hypertension), benign SNOMED Code(s): 55456252 Code(s): I10 - ESSENTIAL (PRIMARY) HYPERTENSION Status: Chronic Priority : Low Current Visit: Yes (10) Insomnia SNOMED Code(s): 671061754 Code(s): G47.00 - INSOMNIA, UNSPECIFIED Status: Acute Current Visit: Yes Qualifiers: Insomnia type: unspecified Qualified Code(s): G47.00 - Insomnia, unspecified - Problem List Review Problem List Initiated/Reviewed/Updated: Yes - Assessment Assessment:: 78 yo female hospital day #3 with YESICA secondary to dehydration and rhabdomyolysis after a fall at home from which she could not get up. Her strength is improving. Labs continue to improve. Blood and urine cultures negative. - Plan Plan:: #1 Acute Kidney Injury, secondary to #3 #2 CKD stage II with baseline creatinine of 1.3 #3 Rhabdomyolysis - Triage Nurse down to 1.4 today from 2.2 yesterday. This is very near her baseline of 1.3. - CK also continues to trend down. - Patient has tolerated the fluid load so far without any issues; however, given improvements in her labs, we will go ahead and stop her IV fluids today. - She will push fluids PO. - Will recheck labs in the am. #4 Leukocytosis - Significantly improved from yesterday to today. CRP is also not in bacterial infection range. - Her urine culture is negative. She has had no s/s of alternative infectious source. - At this point, it is presumed her leukocytosis was from stress secondary to the fall and associated rhabdomyolysis. - Therefore, will d/c the antibiotics today and recheck her WBC tomorrow am. #5 Generalized weakness, multifactorial - PT saw the patient yesterday and has additional appointments scheduled for next week. #6 Anxiety #7 Diastolic CHF #8 COPD #9 Hypertension - Continue home medications. - Patient may benefit from counseling related to her grief. #10 Insomnia - Will add trazodone to help her sleep tonight. Patient will remain admitted to acute today. Will d/c IV fluids and antibiotics and recheck lab in the morning. If her labs are continuing to improve, then anticipate she will be prepared for transition to swing bed cares for ongoing PT prior to discharge home. Code status is DNR/DNI - discussed with her PCP on admission. She is on heparin for VTE prophylaxis.
[2019-01-01] MEDS: Heparin Sodium 5,000 Units/ML Vial SUBCUT SCH ×2 (09:58→21:50)
[2019-01-01] MEDS ORDERED: traZODone 50 MG Tab PO SCH (20:00)
[2019-01-02] MEDS: Acetaminophen 325 MG Tab PO PRN (01:14)
[2019-01-02] MEDS: Fluticasone-Salmeterol 113-14 MCG Powder Inhalant INH SCH (08:02)
[2019-01-02 08:03] LABS: ANION GAP 11.5 mmol/L (10-20)
[2019-01-02] MEDS: Carvedilol 3.125 MG Tab PO SCH (08:03)
[2019-01-02] MEDS: Aspirin 81 MG Tab.EC PO SCH (08:03)
--- NOTE | 2019-01-02 09:36 | PCM.DCSUM1 ---
Discharge Summary - Hospital Course Brief History: Ms. Prieto is a 78 yo female who was admitted for YESICA, dehydration, and rhabdomyolysis after presenting to the ER for evaluation after a fall after which she had laid on the floor for a few hours. - Discharge Data Discharge Date: 01/02/19 Discharge Disposition: DC/Tfer W/I Hosp To Swing 61 Condition: Stable - Referral to Home Health Primary Care Physician: Erika Gregory MD - Discharge Diagnosis/Problem(s) (1) YESICA (acute kidney injury) SNOMED Code(s): 58834840, 42779362 ICD Code: N17.9 - ACUTE KIDNEY FAILURE, UNSPECIFIED Status: Acute Current Visit: Yes (2) CKD (chronic kidney disease) stage 2, GFR 60-89 ml/min SNOMED Code(s): 263956289 ICD Code: N18.2 - CHRONIC KIDNEY DISEASE, STAGE 2 (MILD) Status: Chronic Priority: Medium Current Visit: Yes (3) Rhabdomyolysis SNOMED Code(s): 947220783 ICD Code: M62.82 - RHABDOMYOLYSIS Status: Acute Current Visit: Yes Qualifiers: Rhabdomyolysis type: non-traumatic Qualified Code(s): M62.82 - Rhabdomyolysis (4) Leukocytosis SNOMED Code(s): 981862862, 719721695 ICD Code: D72.829 - ELEVATED WHITE BLOOD CELL COUNT, UNSPECIFIED Status: Acute Current Visit: Yes Qualifiers: Leukocytosis type: unspecified Qualified Code(s): D72.829 - Elevated white blood cell count, unspecified (5) Generalized weakness SNOMED Code(s): 28213422 ICD Code: R53.1 - WEAKNESS Status: Acute Current Visit: Yes (6) Anxiety SNOMED Code(s): 76204169 ICD Code: F41.9 - ANXIETY DISORDER, UNSPECIFIED Status: Chronic Priority : Low Current Visit: Yes (7) CHF (congestive heart failure) SNOMED Code(s): 41689903 ICD Code: I50.9 - HEART FAILURE, UNSPECIFIED Status: Chronic Priority: Medium Current Visit: Yes (8) COPD (chronic obstructive pulmonary disease) SNOMED Code(s): 94382860 ICD Code: J44.9 - CHRONIC OBSTRUCTIVE PULMONARY DISEASE, UNSPECIFIED Status : Chronic Priority: Medium Current Visit: Yes Qualifiers: COPD type: unspecified COPD Qualified Code(s): J44.9 - Chronic obstructive pulmonary disease, unspecified (9) HTN (hypertension), benign SNOMED Code(s): 09648274 ICD Code: I10 - ESSENTIAL (PRIMARY) HYPERTENSION Status: Chronic Priority : Low Current Visit: Yes (10) Insomnia SNOMED Code(s): 331470806 ICD Code: G47.00 - INSOMNIA, UNSPECIFIED Status: Acute Current Visit: Yes Qualifiers: Insomnia type: unspecified Qualified Code(s): G47.00 - Insomnia, unspecified - Patient Summary/Data Operative Procedure(s) Performed: none Complications: none Consults: Consultations 12/30/18 21:32 Consult to Case Management/Supervisor [employer] [CONS] Routine OT Evaluation and Treatment [CONS] Routine PT Evaluation and Treatment [CONS] Routine Labs Pending at D/C: none Recommended Follow-up Testing/Procedures: CBC, BMP in 1 week Planned Operative Procedure(s) after DC: none Hospital Course: The patient was admitted and given IV fluids. There were also concerns initially for a UTI based on her u/a as well as significant leukocytosis; therefore, she was given IV ceftriaxone. Her labs progressively improved and her urine culture returned negative. Therefore, on hospital day #3, her antibiotics and fluids were discontinued. Her labs checked again today continue to improve despite being off the IV fluids and antibiotics. Her BNP did increase compared to admission but she has denied any increased shortness of breath and has no clinical signs of fluid overload. Her lasix has been held during her hospitalization but will be resumed today. She was evaluated by PT on Thursday and they will plan to continue following her. As the patient is no longer meeting acute criteria, she will be transitioned to swing bed today. She is in agreement with this plan. - Patient Instructions Diet: Usual Diet as Tolerated - Discharge Plan Home Medications: Home Meds Albuterol Sulfate [Albuterol Sulfate HFA] 2 puff INH Q4HR PRN 02/01/14 [History] Aspirin [Halfprin] 1 tab PO DAILY 02/01/14 [History] Fluticasone Propionate [Flonase] 1 spray NASBOTH BID 02/01/14 [History] Fluticasone/Salmeterol [Advair 250-50] 1 dose INH BID 02/01/14 [History] Cholecalciferol (Vitamin D3) [Vitamin D3] 1,000 units PO DAILY tablet 08/11/14 [Rx] Furosemide [Lasix] 20 mg PO DAILY 11/04/16 [History] Ipratropium [Atrovent HFA] 2 puff PO QID 11/04/16 [History] Ibuprofen 400 mg PO DAILY 11/05/16 [History] Carvedilol 3.125 mg PO BIDAC 12/30/18 [History] Acetaminophen [Tylenol] 650 mg PO Q4H PRN tablet 01/02/19 [Rx] Forms: ED Department Discharge - Discharge Summary/Plan Comment DC Time >30 min.: No - General Info Date of Service: 01/02/19 Subjective Update: 78 yo female hospital day #4 admitted with YESICA secondary to dehydration and rhabdomyolysis. She did sleep better last night. She states she feels fine today except for muscle soreness from trying to get herself back up off the floor and still feeling generally weak. She notes that she has not had a bowel movement since admission but has been passing lots of gas. She otherwise denies any fever or chills. No chest pain. No shortness of breath above her usual. - Review of Systems General: Reports: No Symptoms HEENT: Reports: No Symptoms Pulmonary: Reports: No Symptoms Cardiovascular: Reports: No Symptoms Gastrointestinal: Reports: No Symptoms Genitourinary: Reports: No Symptoms Musculoskeletal: Reports: No Symptoms Skin: Reports: No Symptoms Neurological: Reports: No Symptoms - Patient Data Vitals - Most Recent: Last Vital Signs Temp 36 C 01/02/19 06:00 Pulse 58 L 01/02/19 08:03 Resp 16 01/02/19 06:00 BP 148/58 H 01/02/19 08:03 Pulse Ox 100 01/02/19 07:18 Weight - Most Recent: 102.784 kg I&O - Last 24 hours: Intake & Output 01/01/19 01/02/19 01/02/19 22:59 06:59 14:59 Intake Total 440 300 Output Total 250 Balance 190 300 Lab Results - Last 24 hrs: Laboratory Results - last 24 hr 01/02/19 01/02/19 Range/Units 07:20 07:20 WBC 7.2 (4.0-10.0) x10^3/uL RBC 4.11 (4.00-5.50) x10^6/uL Hgb 12.0 (12.0-16.0) g/dL Hct 38.2 (33.0-47.0) % MCV 92.9 (78.0-93.0) fL MCH 29.2 (26.0-32.0) pg MCHC 31.4 L (32.0-36.0) g/dL RDW Coeff of Yanna 12.9 (10.0-15.0) % Plt Count 207 (130-400) x10^3/uL Add Manual Diff Yes Neutrophils % (Manual) 67 (50-80) % Lymphocytes % (Manual) 21 L (25-50) % Monocytes % (Manual) 10 (2-11) % Eosinophils % (Manual) 2 (0-4) % Platelet Estimate Adequate Sodium 143 (69-191) mmol/L Potassium 4.5 (1.5-9.9) mmol/L Chloride 108 H (54-184) mmol/L Carbon Dioxide 28 (21-32) mmol/L Anion Gap 11.5 (10-20) mmol/L BUN 26 H (7-18) mg/dL Creatinine 1.2 H (0.55-1.02) mg/dL Est Cr Clr Drug Dosing 31.54 mL/min Estimated GFR (MDRD) 44 Glucose 91 (74-106) mg/dL Calcium 8.3 L (8.5-10.1) mg/dL Creatine Kinase 494 H* (26-192) U/L C-Reactive Protein 2.1 H (<=0.9) mg/dL NT-Pro-B Natriuret Pep 2912 H (<=450) pg/mL EDA Results - Last 24 hrs: Microbiology 12/30/18 20:15 Urine Culture - Final Urine, Clean Catch NO GROWTH AFTER 2 DAYS 12/30/18 21:45 Aerobic Blood Culture - Preliminary Blood - Venous - Lab Draw NO GROWTH AFTER 2 DAYS Anaerobic Blood Culture - Final 12/30/18 21:34 Aerobic Blood Culture - Preliminary Blood - Venous NO GROWTH AFTER 2 DAYS Anaerobic Blood Culture - Final Med Orders - Current: Current Medications Acetaminophen (Tylenol) 650 mg PO Q4H PRN PRN Reason: Pain (Mild 1-3)/fever Last Admin: 01/02/19 01:14 Dose: 650 mg Albuterol (Ventolin Hfa) 0 gm INH Q4H PRN PRN Reason: Shortness of Breath Albuterol (Proventil Neb Soln) 2.5 mg NEB Q4HRRT PRN PRN Reason: Shortness of Breath Aspirin (Halfprin) 81 mg PO DAILY [facility] Last Admin: 01/02/19 08:03 Dose: 81 mg Carvedilol (Coreg) 3.125 mg PO BID@0800,1700 [facility] Last Admin: 01/02/19 08:03 Dose: 3.125 mg Heparin Sodium (Porcine) (Heparin Sodium) 5,000 units SUBCUT Q12H [facility] Last Admin: 01/01/19 21:50 Dose: 5,000 units Fluticasone/Salmeterol (Fluticasone-Salmeterol 113-14 Mcg Powder Inh) 1 puff INH BID@0800,2000 [facility] Last Admin: 01/02/19 08:02 Dose: 1 puff Trazodone HCl (Trazodone) 25 mg PO BEDTIME [facility] Last Admin: 01/01/19 21:51 Dose: 25 mg Discontinued Medications Carvedilol (Coreg) 3.125 mg PO BIDAC [facility] Ceftriaxone Sodium (Rocephin) 1 gm IVPUSH Q24H [facility] Last Admin: 12/31/18 22:15 Dose: 1 gm Fluticasone Propionate (Flonase) 0 gm NASBOTH BID [facility] Last Admin: 12/31/18 08:05 Dose: Not Given Hydromorphone HCl (Dilaudid) 0.25 mg IVPUSH Q4H PRN PRN Reason: Pain Last Admin: 12/30/18 22:22 Dose: 0.25 mg Sodium Chloride (Normal Saline) 1,000 mls @ 100 mls/hr IV ASDIRECTED [facility] Last Admin: 01/01/19 04:06 Dose: 100 mls/hr Influenza Virus Vaccine (Pharmacy To Dose - Influenza Vaccine) 1 each IM ONETIME ONE Stop: 12/30/18 23:31 Influenza Virus Vaccine (Fluzone High-Dose 2018- Syringe) 180 mcg IM .ONCE ONE Stop: 12/31/18 09:01 Last Admin: 12/31/18 09:44 Dose: 180 mcg - Exam General: Reports: Alert, Oriented, Cooperative, No Acute Distress HEENT: Reports: Mucous Membr. Moist/[place]ck: Reports: Supple, Trachea Midline, No Thyromegaly. Denies: Lymphadenopathy Lungs: Reports: Clear to Auscultation, Normal Respiratory Effort Cardiovascular: Reports: Regular Rate, Regular Rhythm, No Murmurs GI/Abdominal Exam: Normal Bowel Sounds, Soft, Non-Tender, No Organomegaly, No Distention, No Mass Extremities: Non-Tender, No Pedal Edema, Normal Capillary Refill Skin: Reports: Warm, Dry, Intact Neurological: Reports: No New Focal Deficit
[2019-01-02] MEDS: Heparin Sodium 5,000 Units/ML Vial SUBCUT SCH (10:01)
[2019-01-02 10:04] VITALS: BP 134/78; PULSE 72
== END 2019-01-02 10:11 | disposition swing bed (61) | DRG 565 ==
LOC: VM.ED 18:31 → VM.MS 21:19
PROVIDERS: ADMIT Family Medicine; ATTEND Family Medicine
DX: T79.6XXA Traumatic ischemia of muscle, initial encounter (principal); N17.9 Acute kidney failure, unspecified; R53.1 Weakness; R41.0 Disorientation, unspecified; I50.32 Chronic diastolic (congestive) heart failure; N39.0 Urinary tract infection, site not specified; I13.0 Hypertensive heart and chronic kidney disease with heart failure and stage 1 through stage 4 chronic kidney disease, or unspecified chronic kidney disease; Z68.41 Body mass index [BMI] 40.0-44.9, adult; E66.9 Obesity, unspecified; E86.0 Dehydration; N18.2 Chronic kidney disease, stage 2 (mild); D72.829 Elevated white blood cell count, unspecified; F41.9 Anxiety disorder, unspecified; J44.9 Chronic obstructive pulmonary disease, unspecified; G47.00 Insomnia, unspecified; I07.1 Rheumatic tricuspid insufficiency; I27.20 Pulmonary hypertension, unspecified; E66.01 Morbid (severe) obesity due to excess calories; E55.9 Vitamin D deficiency, unspecified; S50.312A Abrasion of left elbow, initial encounter; S50.311A Abrasion of right elbow, initial encounter; Z66 Do not resuscitate; Z79.899 Other long term (current) drug therapy; Z79.82 Long term (current) use of aspirin; Z98.49 Cataract extraction status, unspecified eye; Z90.89 Acquired absence of other organs; Z98.51 Tubal ligation status; Z86.14 Personal history of Methicillin resistant Staphylococcus aureus infection; W19.XXXA Unspecified fall, initial encounter
CPT/HCPCS: 36415; 70450; 71045; 72170; 80048; 80053; 81001; 82550; 83605; 83735; 83880; 85025; 85652; 86140; 87040; 87086; 90662; 93005; 94760; 97162-GP; 97165-GO; 99284-GF; 99285-25; A9270-GY; G0008; J0696; J1170; J1644; J7030

== ENCOUNTER 2019-01-02 09:39 | Inpatient (IN) | payer MEDICARE, OTHER ==
[2019-01-02] MEDS ORDERED: Acetaminophen 325 MG Tab PO PRN (10:37)
[2019-01-02] MEDS ORDERED: Polyethylene Glycol 3350 Powder 17 GM Packet PO PRN (10:39)
--- NOTE | 2019-01-02 10:40 | PCM.HP.2 ---
H&P History of Present Illness - General Date of Service: 01/02/19 Admit Problem/Dx: Admission Diagnosis/Problem Admission Diagnosis/Problem Fall Source of Information: Patient History Limitations: Reports: No Limitations - History of Present Illness Initial Comments - Free Text/Narative: Ms. Prieto is a 78 yo female with PMH of CKD, CHF, HTN, COPD, and anxiety who is admitted to swing bed for strengthening prior to returning home after an acute hospital stay. She was hospitalized on acute 12/30-01/02 due to acute kidney injury secondary to dehydration and rhabdomyolysis after she had fallen at home and was unable to get up for several hours. There was also concern for a UTI but her urine culture returned negative and her antibiotics were discontinued >24 hours ago without incident. She is feeling well at this time with the exception of muscle aches and generalized weakness. She has also not had a bowel movement since the day of admission but is passing gas. Her shortness of breath is at baseline and she has denied other concerns. - Related Data Allergies/Adverse Reactions: Allergies Allergy/AdvReac Type Severity Reaction Status Date / Time No Known Allergies Allergy Verified 12/30/18 19:48 Home Medications: Home Meds Albuterol Sulfate [Albuterol Sulfate HFA] 2 puff INH Q4HR PRN 02/01/14 [History] Aspirin [Halfprin] 1 tab PO DAILY 02/01/14 [History] Fluticasone Propionate [Flonase] 1 spray NASBOTH BID 02/01/14 [History] Fluticasone/Salmeterol [Advair 250-50] 1 dose INH BID 02/01/14 [History] Cholecalciferol (Vitamin D3) [Vitamin D3] 1,000 units PO DAILY tablet 08/11/14 [Rx] Furosemide [Lasix] 20 mg PO DAILY 11/04/16 [History] Ipratropium [Atrovent HFA] 2 puff PO QID 11/04/16 [History] Ibuprofen 400 mg PO DAILY 11/05/16 [History] Carvedilol 3.125 mg PO BIDAC 12/30/18 [History] Acetaminophen [Tylenol] 650 mg PO Q4H PRN tablet 01/02/19 [Rx] Past Medical History HEENT History: Reports: Allergic Rhinitis, Cataract Cardiovascular History: Reports: Heart Failure, Hypertension, Pulmonary Hypertension Respiratory History: Reports: Asthma, Bronchitis, Recurrent, COPD, Other (See Below) Other Respiratory History: on oxygen. nocturnal hypoxemia Gastrointestinal History: Reports: None Genitourinary History: Reports: Chronic Renal Insuffiency, Other (See Below) Other Genitourinary History: CKD II Musculoskeletal History: Reports: None Neurological History: Reports: None Psychiatric History: Reports: Anxiety Endocrine/Metabolic History: Reports: Obesity/BMI 30+, Vitamin D Deficiency Hematologic History: Reports: Other (See Below) Other Hematologic History: HX MRSA Immunologic History: Reports: None Oncologic (Cancer) History: Reports: None Dermatologic History: Reports: Cellulitis, Other (See Below) Other Dermatologic History: upper back abscess - Infectious Disease History Infectious Disease History: Reports: MRSA - Past Surgical History Head Surgeries/Procedures: Reports: None HEENT Surgical History: Reports: Cataract Surgery, Tonsillectomy, Other (See Below) Other HEENT Surgeries/Procedures: eyelid lesion Cardiovascular Surgical History: Reports: None GI Surgical History: Reports: Hernia Repair/Other, Small Bowel Female Surgical History: Reports: Tubal Ligation Musculoskeletal Surgical History: Reports: None Oncologic Surgical History: Reports: None Social & Family History - Family History HEENT: Reports: Cataract Endocrine/Metabolic: Reports: Diabetes, type II - Tobacco Use Smoking Status *Q: Never Smoker - Alcohol Use Alcohol Use History: No - Recreational Drug Use Recreational Drug Use: No - Living Situation & Occupation Living situation: Reports: , Alone Occupation: Retired H&P Review of Systems - Review of Systems: Review Of Systems: See Below General: Reports: No Symptoms HEENT: Reports: No Symptoms Pulmonary: Reports: No Symptoms Cardiovascular: Reports: No Symptoms Gastrointestinal: Reports: No Symptoms Genitourinary: Reports: No Symptoms Musculoskeletal: Reports: Leg Pain Skin: Reports: No Symptoms Psychiatric: Reports: No Symptoms Neurological: Reports: No Symptoms Exam - Exam Exam: See Below - Exam General: Alert, Oriented, Cooperative HEENT: Conjunctiva Clear, Mucosa Moist & [place], Posterior Pharynx Clear, Pupils Equal, Pupils Reactive Neck: Supple, Trachea Midline, Lymphadenopathy. No: Thyromegaly Lungs: Clear to Auscultation, Normal Respiratory Effort Cardiovascular: Regular Rate, Regular Rhythm, Normal S1, Normal S2 GI/Abdominal Exam: Normal Bowel Sounds, Soft, Non-Tender, No Organomegaly, No Distention, No Mass Extremities: Non-Tender, No Pedal Edema, Normal Capillary Refill Peripheral Pulses: 2+: Radial (L), Radial (R) Skin: Warm, Dry, Intact - Problem List (1) Generalized weakness SNOMED Code(s): 82287730 ICD Code: R53.1 - WEAKNESS Status: Acute Current Visit: No (2) Constipation SNOMED Code(s): 72362468 ICD Code: K59.00 - CONSTIPATION, UNSPECIFIED Status: Acute Current Visit : Yes Qualifiers: Constipation type: unspecified constipation type Qualified Code(s): K59.00 - Constipation, unspecified (3) Insomnia SNOMED Code(s): 959399979 ICD Code: G47.00 - INSOMNIA, UNSPECIFIED Status: Acute Current Visit: No Qualifiers: Insomnia type: unspecified Qualified Code(s): G47.00 - Insomnia, unspecified (4) Anxiety SNOMED Code(s): 79303749 ICD Code: F41.9 - ANXIETY DISORDER, UNSPECIFIED Status: Chronic Priority : Low Current Visit: No (5) CHF (congestive heart failure) SNOMED Code(s): 18824108 ICD Code: I50.9 - HEART FAILURE, UNSPECIFIED Status: Chronic Priority: Medium Current Visit: No Qualifiers: Heart failure type: diastolic Heart failure chronicity: chronic Qualified Code(s): I50.32 - Chronic diastolic (congestive) heart failure (6) CKD (chronic kidney disease) stage 2, GFR 60-89 ml/min SNOMED Code(s): 854319797 ICD Code: N18.2 - CHRONIC KIDNEY DISEASE, STAGE 2 (MILD) Status: Chronic Priority: Medium Current Visit: No (7) COPD (chronic obstructive pulmonary disease) SNOMED Code(s): 03900345 ICD Code: J44.9 - CHRONIC OBSTRUCTIVE PULMONARY DISEASE, UNSPECIFIED Status : Chronic Priority: Medium Current Visit: No Qualifiers: COPD type: unspecified COPD Qualified Code(s): J44.9 - Chronic obstructive pulmonary disease, unspecified (8) HTN (hypertension), benign SNOMED Code(s): 84204237 ICD Code: I10 - ESSENTIAL (PRIMARY) HYPERTENSION Status: Chronic Priority : Low Current Visit: No (9) Morbid obesity SNOMED Code(s): 161237961 ICD Code: E66.01 - MORBID (SEVERE) OBESITY DUE TO EXCESS CALORIES Status: Chronic Current Visit: No Problem List Initiated/Reviewed/Updated: Yes Orders Last 24hrs: Active Orders 24 hr Category Date Time Status Admission Status [Patient Status] [ADT] Routine ADT 01/02/19 10:06 Active Notify Provider Vital Signs [RC] ASDIRECTED Care 01/02/19 10:36 Active Oxygen Therapy [RC] PRN Care 01/02/19 10:35 Active Up With Assistance [RC] ASDIRECTED Care 01/02/19 10:35 Active VTE/DVT Education [RC] PER UNIT ROUTINE Care 01/02/19 10:35 Active Vital Signs [RC] PER UNIT ROUTINE Care 01/02/19 10:35 Active OT Evaluation and Treatment [CONS] Routine Cons 01/02/19 10:35 Active PT Evaluation and Treatment [CONS] Routine Cons 01/02/19 10:35 Active 2 Gram Sodium Diet [DIET] Diet 01/02/19 Lunch Active Acetaminophen [Tylenol] Med 01/02/19 10:37 Ordered 650 mg PO Q4H PRN Albuterol [Take Home: Albuterol 6.7 GM, 1 INH Pack] Med 01/02/19 10:37 Ordered DOSE packet INH Q4HR PRN Aspirin [Halfprin] Med 01/03/19 08:00 Ordered 81 mg PO DAILY Carvedilol [Coreg] Med 01/02/19 17:00 Ordered 3.125 mg PO BIDAC Fluticasone/Salmeterol [Advair 250-50] Med 01/02/19 20:00 Ordered 1 dose INH BID Furosemide [Lasix] Med 01/02/19 10:45 Ordered 20 mg PO DAILY Heparin Sodium Med 01/02/19 12:00 Active 5,000 units SUBCUT TID Ipratropium [Atrovent HFA] Med 01/02/19 12:00 Ordered 2 puff PO QID Polyethylene Glycol 3350 [MiraLAX] Med 01/02/19 10:39 Ordered 17 gm PO DAILY PRN Resuscitation Status Routine Resus Stat 01/02/19 10:35 Ordered Medication Orders Acetaminophen (Tylenol) 650 mg PO Q4H PRN PRN Reason: Pain (Mild 1-3)/fever Albuterol (Take Home: Albuterol 6.7 Gm, 1 Inh Pack) packet INH Q4HR PRN PRN Reason: sob Aspirin (Halfprin) 81 mg PO DAILY [facility] Carvedilol (Coreg) 3.125 mg PO BIDAC [facility] Furosemide (Lasix) 20 mg PO DAILY [facility] Heparin Sodium (Porcine) (Heparin Sodium) 5,000 units SUBCUT TID [facility] Non-Formulary Medication (Fluticasone/Salmeterol [Advair 250-50]) 1 dose INH BID [facility] Non-Formulary Medication (Ipratropium [Atrovent Hfa]) 2 puff PO QID [facility] Assessment/Plan Comment:: 78 yo female admitted to swing bed for strengthening prior to return home after an acute hospital stay. #1 Generalized Weakness - PT/OT consults ordered. - Do not anticipate she will need a long stay. #2 Constipation - Will add miralax today to see if we can get her bowels moving. #3 Insomnia - Continue trazodone for sleep issues while hospitalized. #4 Anxiety #5 CHF #6 CKD #7 COPD #8 Hypertension #9 Morbid Obesity - Chronic conditions stable at this time. - Lasix will be resumed today. - Continue all other home medications. Patient will be admitted to swing bed today - anticipate short duration of stay but this will be up to therapies. Should have repeat labs later this week prior to discharge. Continue heparin for VTE prophylaxis. Code status is DNR/DNI - confirmed on admission. Dr. Gregory to follow starting tomorrow.
[2019-01-02] MEDS: Furosemide 20 MG Tab PO SCH (12:40)
[2019-01-02] MEDS: Heparin Sodium 5,000 Units/ML Vial SUBCUT SCH ×2 (12:40→20:38)
[2019-01-02] MEDS: Ipratropium 0.02% 0.5 MG/2.5 ML Neb Soln INH SCH ×2 (14:54→20:40)
[2019-01-02] MEDS ORDERED: Albuterol 0.083% 2.5 MG/3 ML Neb Soln INH PRN (15:00)
[2019-01-02] MEDS: Carvedilol 3.125 MG Tab PO SCH (17:24)
[2019-01-02] MEDS: Fluticasone-Salmeterol 113-14 MCG Powder Inhalant INH SCH (20:41)
[2019-01-02] MEDS ORDERED: Acetaminophen 325 MG Tab PO STA (22:10)
[2019-01-02] MEDS: traZODone 50 MG Tab PO PRN (22:19)
[2019-01-03] MEDS: Ipratropium 0.02% 0.5 MG/2.5 ML Neb Soln INH SCH ×4 (06:39→20:43)
[2019-01-03] MEDS: Carvedilol 3.125 MG Tab PO SCH ×2 (06:50→17:15)
[2019-01-03] MEDS: Aspirin 81 MG Tab.EC PO SCH (08:36)
[2019-01-03] MEDS: Acetaminophen 500 MG Tab PO PRN ×2 (08:36→20:42)
[2019-01-03] MEDS: Furosemide 20 MG Tab PO SCH (08:36)
[2019-01-03] MEDS: Heparin Sodium 5,000 Units/ML Vial SUBCUT SCH ×3 (08:36→20:43)
[2019-01-03] MEDS: Fluticasone-Salmeterol 113-14 MCG Powder Inhalant INH SCH ×2 (08:38→20:44)
--- NOTE | 2019-01-03 08:48 | PN ---
Progress Note for VON TORIBIO Date: 01/03/2019 Room #: VM.204 SUBJECTIVE: The patient is still feeling weak. Her knees are somewhat sore, but getting stronger. She is not short of breath. OBJECTIVE: Vital Signs: Her weight is 101.8, temperature is 36.4, pulse 58, blood pressure is 151/62, sats are 97% on 2 L. General: She is starting to walk with therapies. Appears little weaker. Heart: Regular rate. Lungs: Rare crackle on left base. Abdomen: Soft. Extremities: Lower extremities, no edema. IMPRESSION: 1. Rhabdomyolysis. 2. Weakness secondary to fall. 3. Congestive heart failure. 4. Hypertension. 5. Chronic kidney disease. PLAN: The patient will continue to work with PT/OT. We will place a spiritual care consult as well for patient. We will recheck lab work tomorrow. Anticipate discharge in a few days. GM01/03/2019 08:30:16 MODL: 01/03/2019 08:40:55 /[id number]
[2019-01-03] MEDS: traZODone 50 MG Tab PO PRN (20:43)
[2019-01-04 07:35] LABS: ANION GAP 8.5 mmol/L (10-20)
[2019-01-04] MEDS: Fluticasone-Salmeterol 113-14 MCG Powder Inhalant INH SCH ×2 (08:06→20:56)
[2019-01-04] MEDS: Heparin Sodium 5,000 Units/ML Vial SUBCUT SCH ×3 (08:07→20:56)
[2019-01-04] MEDS: Carvedilol 3.125 MG Tab PO SCH ×2 (08:07→17:56)
[2019-01-04] MEDS: Furosemide 20 MG Tab PO SCH (08:09)
[2019-01-04] MEDS: Aspirin 81 MG Tab.EC PO SCH (08:10)
[2019-01-04] MEDS: Ipratropium 0.02% 0.5 MG/2.5 ML Neb Soln INH SCH ×4 (08:22→21:09)
[2019-01-04] MEDS: traZODone 50 MG Tab PO PRN (20:57)
[2019-01-04] MEDS: Acetaminophen 500 MG Tab PO PRN (20:57)
[2019-01-05] MEDS: Ipratropium 0.02% 0.5 MG/2.5 ML Neb Soln INH SCH ×4 (07:17→19:50)
[2019-01-05] MEDS: Carvedilol 3.125 MG Tab PO SCH ×2 (07:31→17:28)
[2019-01-05] MEDS: Heparin Sodium 5,000 Units/ML Vial SUBCUT SCH ×3 (07:32→19:50)
[2019-01-05] MEDS: Aspirin 81 MG Tab.EC PO SCH (07:32)
[2019-01-05] MEDS: Furosemide 20 MG Tab PO SCH (07:32)
[2019-01-05] MEDS: Fluticasone-Salmeterol 113-14 MCG Powder Inhalant INH SCH ×2 (07:32→19:51)
[2019-01-05] MEDS: Acetaminophen 500 MG Tab PO PRN ×2 (14:54→19:54)
[2019-01-05] MEDS: traZODone 50 MG Tab PO PRN (19:54)
[2019-01-06] MEDS: Ipratropium 0.02% 0.5 MG/2.5 ML Neb Soln INH SCH ×4 (06:24→20:18)
[2019-01-06] MEDS: Furosemide 20 MG Tab PO SCH (07:24)
[2019-01-06] MEDS: Fluticasone-Salmeterol 113-14 MCG Powder Inhalant INH SCH ×2 (07:24→20:16)
[2019-01-06] MEDS: Heparin Sodium 5,000 Units/ML Vial SUBCUT SCH ×3 (07:24→20:17)
[2019-01-06] MEDS: Aspirin 81 MG Tab.EC PO SCH (07:24)
[2019-01-06] MEDS: Carvedilol 3.125 MG Tab PO SCH ×2 (07:25→18:06)
--- NOTE | 2019-01-06 09:52 | PN ---
Progress Note for VON TORIBIO Date: 01/06/2019 Room #: VM.204 SUBJECTIVE: The patient is still feeling weak, but getting stronger with her legs with walking around. She is breathing well and she is working with therapies. OBJECTIVE: VITAL SIGNS: Her weight is 100.69, which is down slightly from admission of 103.6 kg. Temperature is 35.8, pulse 79, blood pressure 147/74, respiratory rate 22, saturation of 96% on 2 L. GENERAL: The patient is alert, sitting up in a chair, wearing oxygen. HEART: Regular rate. LUNGS: Have diminished breath sounds on bases. SKIN: On her right elbow has healing excoriations. Her knees have bruises that are improving. NEUROLOGIC: She does appear to be slightly weak. IMPRESSION: 1. Rhabdomyolysis, improving. 2. Congestive heart failure. 3. Chronic obstructive pulmonary disease. 4. Oxygen dependent. 5. Chronic kidney disease. 6. Hypertension. PLAN: The patient will continue on swing bed. She will continue PT, OT until she has plateaued and would be ready to go home. Tomorrow, we will recheck lab work to make sure that her CK is staying normal as well as her liver enzymes are stable as well as renal function. GM01/06/2019 08:32:47 MODL: 01/06/2019 09:42:52 /[id number]
[2019-01-06] MEDS: Acetaminophen 500 MG Tab PO PRN ×2 (14:25→20:15)
[2019-01-06] MEDS: traZODone 50 MG Tab PO PRN (20:15)
[2019-01-07] MEDS: Ipratropium 0.02% 0.5 MG/2.5 ML Neb Soln INH SCH ×4 (06:20→20:40)
[2019-01-07 07:22] LABS: ANION GAP 7.4 mmol/L (10-20)
[2019-01-07] MEDS: Furosemide 20 MG Tab PO SCH (08:19)
[2019-01-07] MEDS: Heparin Sodium 5,000 Units/ML Vial SUBCUT SCH ×3 (08:19→20:40)
[2019-01-07] MEDS: Aspirin 81 MG Tab.EC PO SCH (08:19)
[2019-01-07] MEDS: Carvedilol 3.125 MG Tab PO SCH ×2 (08:19→17:57)
[2019-01-07] MEDS: Acetaminophen 500 MG Tab PO PRN ×2 (08:20→12:46)
[2019-01-07] MEDS: Fluticasone-Salmeterol 113-14 MCG Powder Inhalant INH SCH ×2 (08:20→21:11)
[2019-01-07] MEDS: traZODone 50 MG Tab PO PRN (20:40)
[2019-01-08] MEDS: Ipratropium 0.02% 0.5 MG/2.5 ML Neb Soln INH SCH ×4 (06:08→20:14)
[2019-01-08] MEDS: Aspirin 81 MG Tab.EC PO SCH (08:49)
[2019-01-08] MEDS: Furosemide 20 MG Tab PO SCH (08:49)
[2019-01-08] MEDS: Carvedilol 3.125 MG Tab PO SCH ×2 (08:49→17:11)
[2019-01-08] MEDS: Heparin Sodium 5,000 Units/ML Vial SUBCUT SCH (08:50)
[2019-01-08] MEDS: Fluticasone-Salmeterol 113-14 MCG Powder Inhalant INH SCH ×2 (08:50→20:16)
--- NOTE | 2019-01-08 09:32 | PCM.SN ---
- Free Text/Narrative Note: Nursing asked for some melatonin to help her sleep this was ordered and I also did d/c the heparin as she is up moving around and there is no indication for DVT prophylaxis now that she is on swing bed.
[2019-01-08] MEDS: Acetaminophen 500 MG Tab PO PRN (17:11)
[2019-01-08] MEDS: Melatonin 3 MG Tab PO SCH (20:14)
[2019-01-08] MEDS: traZODone 50 MG Tab PO PRN (20:15)
[2019-01-09] MEDS: Ipratropium 0.02% 0.5 MG/2.5 ML Neb Soln INH SCH ×4 (06:37→20:24)
[2019-01-09] MEDS: Furosemide 20 MG Tab PO SCH (08:12)
[2019-01-09] MEDS: Carvedilol 3.125 MG Tab PO SCH ×2 (08:12→17:26)
[2019-01-09] MEDS: Aspirin 81 MG Tab.EC PO SCH (08:12)
[2019-01-09] MEDS: Fluticasone-Salmeterol 113-14 MCG Powder Inhalant INH SCH ×2 (08:12→20:23)
[2019-01-09] MEDS: Acetaminophen 500 MG Tab PO PRN ×2 (14:42→20:27)
[2019-01-09] MEDS: traZODone 50 MG Tab PO PRN (20:24)
[2019-01-09] MEDS: Melatonin 3 MG Tab PO SCH (20:24)
[2019-01-10] MEDS: Ipratropium 0.02% 0.5 MG/2.5 ML Neb Soln INH SCH ×4 (07:39→19:39)
[2019-01-10] MEDS: Aspirin 81 MG Tab.EC PO SCH (07:49)
[2019-01-10] MEDS: Fluticasone-Salmeterol 113-14 MCG Powder Inhalant INH SCH ×2 (07:49→19:39)
[2019-01-10] MEDS: Carvedilol 3.125 MG Tab PO SCH ×2 (07:49→16:08)
[2019-01-10] MEDS: Furosemide 20 MG Tab PO SCH (07:49)
[2019-01-10] MEDS: Acetaminophen 500 MG Tab PO PRN (16:07)
[2019-01-10] MEDS: Melatonin 3 MG Tab PO SCH (21:00)
[2019-01-10] MEDS: traZODone 50 MG Tab PO PRN (22:00)
[2019-01-11] MEDS: Ipratropium 0.02% 0.5 MG/2.5 ML Neb Soln INH SCH ×4 (07:14→19:14)
[2019-01-11] MEDS: Furosemide 20 MG Tab PO SCH (07:47)
[2019-01-11] MEDS: Fluticasone-Salmeterol 113-14 MCG Powder Inhalant INH SCH ×2 (07:47→19:14)
[2019-01-11] MEDS: Aspirin 81 MG Tab.EC PO SCH (07:47)
[2019-01-11] MEDS: Carvedilol 3.125 MG Tab PO SCH ×2 (07:48→17:28)
--- NOTE | 2019-01-11 09:31 | PN ---
Progress Note for VON TORIBIO Date: 01/11/2019 Room #: VM.204 SUBJECTIVE: The patient is getting stronger and has planned discharge for tomorrow. She is wondering if her discharge could be postponed until due to family members being able to get her. I stated I am not able to control that, and she needs to work with Cardiac Cath Lab Manager about payment of therapies and when she can be discharged. Otherwise, her breathing has been stable. She would like to have home health to help with strengthening continued at home. OBJECTIVE: Vital Signs: Her weight is 99.7 kg which is down 0.3 from yesterday and down 4 kg from admission. Her pulse is 61, blood pressure is 123/59, saturations are 96% on 2 L. Skin: [place], warm, and dry. Knees, bruises have resolved. Heart: Regular rate and rhythm. Lungs: Rare inspiratory wheeze on left base. Abdomen: Soft. LABORATORY DATA: Last lab work was done on 01/07/2019, which was quite stable and CK had gone back to normal. IMPRESSION: 1. Rhabdomyolysis. 2. Acute kidney injury. 3. Insomnia. 4. Congestive heart failure, chronic diastolic. 5. Oxygen dependent. 6. Hypertension. PLAN: We will make arrangements for the patient's discharge as I am not here tomorrow, and she will be set up for home health. [id number] exam was done today. The patient uses a walker as well as oxygen. She depends on others for transportation. She is unable to walk more than 50 feet without becoming extremely tired. I will be monitoring her progress with physical therapy and home health. The patient has weakness due to fall with rhabdomyolysis as well as her CHF and obesity and deconditioning. GM01/11/2019 08:32:27 MODL: 01/11/2019 09:22:36 /[id number]
[2019-01-11] MEDS: Melatonin 3 MG Tab PO SCH (19:14)
[2019-01-11] MEDS: traZODone 50 MG Tab PO PRN (19:14)
[2019-01-12 05:53] VITALS: BP 121/57; PULSE 58
[2019-01-12] MEDS: Ipratropium 0.02% 0.5 MG/2.5 ML Neb Soln INH SCH ×2 (06:32→12:16)
[2019-01-12] MEDS: Furosemide 20 MG Tab PO SCH (07:30)
[2019-01-12] MEDS: Carvedilol 3.125 MG Tab PO SCH (07:30)
[2019-01-12] MEDS: Aspirin 81 MG Tab.EC PO SCH (07:30)
[2019-01-12] MEDS: Fluticasone-Salmeterol 113-14 MCG Powder Inhalant INH SCH (07:31)
--- NOTE | 2019-01-12 09:26 | DISCH ---
PRIMARY DIAGNOSES: 1. Acute rhabdomyolysis. 2. Acute kidney injury. 3. Dehydration. 4. Chronic congestive heart failure. 5. Weakness secondary to multifactorial. 6. Chronic obstructive pulmonary disease. 7. Oxygen dependent. 8. Hypertension. 9. Insomnia. 10.Morbid obesity. SUMMARY OF HISTORY AND PHYSICAL: The patient is a 78-year-old female who had fallen at home and was unable to get up. She laid on the bed for several hours and called the ambulance, was brought in on 12/30/2018. The patient received IV hydration which helped with kidney flushing. Also, her FORREST inhibitor had been held for a day as well as her diuretic. The patient did have some bruises on her knees. She was placed on heparin for DVT prophylaxis. The patient was placed on swing bed for continued strengthening on 01/02/2019. While on swing bed, she had a very stable course. She ended up needing something to help her sleep. She was placed on both trazodone as well as melatonin. Her lungs had gotten quite a bit better. Laboratory data that was done on 01/07/2019 showed her white blood cell count 5.9, hemoglobin 12.7, platelets 231 with 60 segs, 2 bands, 30 lymphocytes. Her sodium was 143, potassium 4.1, creatinine 1.2 after having been a high of 2.7 on admission. Her BUN at discharge was 20, GFR was 44, glucose was 91, calcium 8.6, magnesium last checked was 2.3. Her LFTs were resumed back to normal with her AST 30, maximum having been 209 on 12/31/2018. Her ALT was 53. CK was back to 45 on 01/07/2019, maximum had been 8500 on admission on 12/30/2018. Her proBNP was 1981 on 01/04/2019, had been up to 2900. The patient's urine had been checked to rule out a bladder infection. IMAGING: She had chest x-rays done which had shown cardiomegaly and some CHF. She had a negative pelvic fracture, negative head CT done. [id number] encounter for need for home health was done on her progress note on 01/11/2019. MEDICATIONS: Her medications at the time of discharge here will be her oxygen at 2 L, Tylenol 1000 mg q.6 hours p.r.n., albuterol inhaler 2 puffs q.4 hours p.r.n., aspirin 81 mg 1 pill daily, carvedilol 3.125 mg 1 pill twice a day, Advair 250/50 one puff b.i.d., furosemide 20 mg 1 pill daily, Atrovent 2 puffs q.i.d., melatonin 3 mg 1 pill at bedtime, MiraLAX 17 g daily p.r.n. bowels, constipation, trazodone 50 mg 1 pill at bedtime p.r.n., vitamin D 1000 units daily, and ibuprofen 400 mg daily. FOLLOWUP: The patient is to return to see me in a weeks' time for clinic followup. GM01/11/2019 08:44:10 MODL: 01/11/2019 17:04:27 /[id number]
== END 2019-01-12 12:50 | disposition home health service (06) | DRG 948 ==
LOC: VM.MS 10:11
PROVIDERS: ADMIT Family Medicine; ATTEND Family Medicine
DX: R53.1 Weakness (principal); I13.0 Hypertensive heart and chronic kidney disease with heart failure and stage 1 through stage 4 chronic kidney disease, or unspecified chronic kidney disease; I50.32 Chronic diastolic (congestive) heart failure; N17.9 Acute kidney failure, unspecified; K59.00 Constipation, unspecified; E86.0 Dehydration; T79.6XXA Traumatic ischemia of muscle, initial encounter; G47.00 Insomnia, unspecified; Z66 Do not resuscitate; F41.9 Anxiety disorder, unspecified; N18.2 Chronic kidney disease, stage 2 (mild); J44.9 Chronic obstructive pulmonary disease, unspecified; E66.01 Morbid (severe) obesity due to excess calories; Z99.81 Dependence on supplemental oxygen; Z68.39 Body mass index [BMI] 39.0-39.9, adult; Z98.49 Cataract extraction status, unspecified eye; Z90.89 Acquired absence of other organs; Z79.82 Long term (current) use of aspirin; Z79.899 Other long term (current) drug therapy
CPT/HCPCS: 36415; 80053; 82550; 83880; 85025; 94640; 94760; 97110-GP; 97116-GP; 97530-GP; 97535-GO; A9270-GY; J1644